=== PATIENT | male | born 1995 | race Caucasian/White ===

== ENCOUNTER 2017-07-25 06:49 | Emergency (ER) | payer OTHER ==
[~2017-07-25] VITALS: Ht 172.7 cm; Wt 76.2 kg
[~2017-07-25 06:49] MED LIST: KETO10TA2 PO; MACRODANTIN100 MG PO
[2017-07-25] MEDS ORDERED: KETO10TA2 PO (13:32)
[2017-07-25] MEDS ORDERED: TAMS0.4C PO (13:32)
== END 2017-07-25 14:10 | disposition home or self-care (01) ==
LOC: ER 06:49
DX: R10.32 Left lower quadrant pain (principal); N20.0 Calculus of kidney

== ENCOUNTER 2019-05-26 11:56 | Emergency (ER) | payer OTHER ==
[~2019-05-26] VITALS: Ht 172.7 cm; Wt 77.1 kg
[~2019-05-26 11:56] MED LIST changes: +TAMS0.4C PO
== END 2019-05-26 18:59 | disposition home or self-care (01) ==
LOC: ER 11:56
DX: N20.0 Calculus of kidney (principal); R10.32 Left lower quadrant pain

== ENCOUNTER 2020-07-31 14:54 | Emergency (ER) | payer OTHER ==
[~2020-07-31] VITALS: Ht 172.7 cm; Wt 81.6 kg
== END 2020-07-31 19:03 | disposition home or self-care (01) ==
LOC: ER 14:54
DX: U07.1 COVID-19 (principal); R10.84 Generalized abdominal pain

== ENCOUNTER 2020-08-02 10:44 | Emergency (ER) | payer OTHER ==
[~2020-08-02] VITALS: Ht 152.4 cm; Wt 81.6 kg
== END 2020-08-02 12:23 | disposition home or self-care (01) ==
LOC: ER 10:44
DX: J35.01 Chronic tonsillitis (principal)

== ENCOUNTER 2021-03-25 20:16 | Outpatient (CLI) | payer OTHER | END 2021-03-25 20:29 | disposition home health service (06) | LOC: LAB 20:16 | PROVIDERS: ATTEND Obstetrics & Gynecology | DX: Z20.818 Contact with and (suspected) exposure to other bacterial communicable diseases (principal); Z20.828 Contact with and (suspected) exposure to other viral communicable diseases ==

== ENCOUNTER 2022-05-03 10:29 | Emergency (ER) | payer OTHER ==
[~2022-05-03] VITALS: Ht 170.2 cm; Wt 81.6 kg
[2022-05-03] MEDS ORDERED: KETO10TA2 PO (15:59)
[2022-05-03] MEDS ORDERED: TAMS0.4C PO (15:59)
== END 2022-05-03 16:07 ==
LOC: ER 10:29
DX: R10.31 Right lower quadrant pain (principal); N20.0 Calculus of kidney